=== PATIENT | female | born 1975 | race African-American/Black ===

== ENCOUNTER 2016-11-19 13:57 | Emergency (ER) | payer OTHER ==
[~2016-11-19] VITALS: Ht 162.6 cm; Wt 131.5 kg
[2016-11-19 15:48] VITALS: BP 156/108
--- NOTE | 2016-11-19 15:52 | PHYS DOC ---
Past Medical History Past Medical History: Diabetes-Type II, Hypertension Additional Information: nonsmoker Alcohol Use: Occasionally Drug Use: None Adult General Chief Complaint Chief Complaint: COUGH HPI HPI Patient is a 41 year old female who presents with nonproductive cough and mild shortness of breath for4 days. She reports subjective fevers at home with nasal congestion, sore throat, ear pain, and body aches. She denies vomiting, diarrhea , or abdominal pain. She did not receive a flu vaccination this season. She denies any known sick contacts. Her PCP is Dr. Lela Everett. Review of Systems Review of Systems Constitutional: Reports subjective fever. Eyes: Denies change in visual acuity, redness, or eye pain. [] HENT: Reports ear pain, nasal congestion, and sore throat. Respiratory: Reports nonproductive cough and mild shortness of breath. Cardiovascular: Denies chest pain, palpitations or edema. [] GI: Denies abdominal pain, nausea, vomiting, bloody stools or diarrhea. [] Musculoskeletal: Denies back pain or joint pain. Reports myalgias. Integument: Denies rash or skin lesions. [] Neurologic: Denies headache, focal weakness or sensory changes. [] All systems reviewed and negative unless otherwise stated in the HPI. Allergies Allergies Allergies Coded Allergies Type Severity Reaction Last Updated Verified No Known Drug Allergies 11/19/16 No Physical Exam Physical Exam Constitutional: Well developed, well nourished, no acute distress, non-toxic appearance. [] HENT: Normocephalic, atraumatic, bilateral external ears normal, oropharynx moist, no oral exudates, nose normal. Bilateral TMs without erythema or bulging. There is no posterior pharyngeal erythema or tonsillar edema. Bilateral nasal turbinates are swollen and erythematous with purulent drainage. Eyes: PERRLA, EOMI, conjunctiva normal, no discharge. [] Neck: Normal range of motion, no tenderness, supple, no stridor. [] Cardiovascular: Heart rate regular rhythm, no murmur [] Lungs & Thorax: No respiratory distress. Mild wheezing in the left lung base without rales or rhonchi. Skin: Warm, dry, no erythema, no rash. [] Neurologic: Alert and oriented X 3, normal motor function, normal sensory function, no focal deficits noted. [] Psychologic: Affect normal, judgement normal, mood normal. [] Current Patient Data Vital Signs Vital Signs Date Time Temp Pulse Resp B/P Pulse Ox O2 Delivery O2 Flow Rate FiO2 11/19/16 15:48 99.7 116 20 100 Room Air 99.7 Lab Values Laboratory Tests Test 11/19/16 15:43 Influenza Type A Antigen Positive (NEGATIVE) Influenza Type B Antigen Negative (NEGATIVE) EKG EKG [] Radiology/Procedures Radiology/Procedures REASON: cough, LLL wheezes PROCEDURE: CHEST PA & LATERAL Indication cough. Wheezing. Difficulty breathing. PA and lateral views of the chest were obtained and are compared to an examination 08/16/2012. The heart and pulmonary vessels appear normal. The lungs are clear. There has not been a significant change when compared to the previous exam. IMPRESSION: Continued normal study Course & Med Decision Making Course & Med Decision Making Pertinent Labs and Imaging studies reviewed. (See chart for details) [] Dragon Disclaimer Dragon Disclaimer This electronic medical record was generated, in whole or in part, using a voice recognition dictation system. Departure Departure Impression: Primary Impression: Influenza A Disposition: 01 HOME, SELF-CARE Condition: STABLE Referrals: LELA EVERETT MD (PCP) Patient Instructions: Influenza, Adult, [id number] Additional Instructions: Your flu test was positive for influenza A. Your chest xray was negative for pneumonia. Please use the prescribed inhaler as needed for cough or shortness of breath. Do not use more often than directed. Please use Tylenol and ibuprofen for fever and pain control. Use according to package instructions. Please drink lots of water to stay hydrated and get plenty of rest. Please practice good hand hygiene to prevent infecting others with the flu. Return to emergency department if you have any new or concerning symptoms. Scripts Benzonatate 200 Mg Capsule1 Cap PO TID #30 CAP Prov:FRANCES MURRAY 11/19/16 Albuterol Sulfate (Proair Hfa Inhaler)8.5 Gm Hfa.[id number].[id number] Puff INH Q4HRS PRN SHORTNESS OF BREATH #1 INHALER Prov:FRANCES MURRAY 11/19/16 FRANCES MURRAY Nov 19, 2016 15:52
--- NOTE | 2016-11-19 16:26 | RAD ---
Indication cough. Wheezing. Difficulty breathing. PA and lateral views of the chest were obtained and are compared to an examination 08/16/2012. The heart and pulmonary vessels appear normal. The lungs are clear. There has not been a significant change when compared to the previous exam. IMPRESSION: Continued normal study
[2016-11-19 16:27] LABS: OBC FLU VALID
[2016-11-19] MEDS ORDERED: PROAIR HFA8.5 GM INH (16:48)
[2016-11-19] MEDS ORDERED: BENZ200C39 PO (16:48)
== END 2016-11-19 17:05 | disposition home or self-care (01) ==
LOC: ER 13:57
DX: J09.X2 Influenza due to identified novel influenza A virus with other respiratory manifestations (principal); E11.9 Type 2 diabetes mellitus without complications; I10 Essential (primary) hypertension
CPT/HCPCS: 71020; 87804; 99285-25

== ENCOUNTER 2017-05-20 08:24 | Emergency (ER) | payer OTHER ==
[~2017-05-20 08:24] MED LIST: BENZ200C47 PO; PROAIR HFA8.5 GM INH
[2017-05-20 08:55] VITALS: BP 136/93
[2017-05-20] MEDS ORDERED: CEPH-263 PO (09:10)
--- NOTE | 2017-05-20 09:10 | PHYS DOC ---
Past Medical History Past Medical History: Diabetes-Type II, Hypertension Past Surgical History: No Surgical History Alcohol Use: Occasionally Drug Use: None Adult General Chief Complaint Chief Complaint: EYE PROBLEMS HPI HPI This is a pleasant 42-year-old female presenting to the emergency department today with swelling of the upper part of her right eyelid. It is been present for about 3 days. It is associated with mild redness without any drainage. She denies any changes in her vision. Review of systems was negative for chest pain shortness of breath vision changes numbness weakness tingling fevers or chills. All other review of systems is negative unless otherwise noted in history of present illness. ED course: 42-year-old female presenting to the emergency department today with swelling and redness of the top part of her right eyelid. Differential diagnosis included preseptal cellulitis, hordoleum, chalazion. She denies any vision changes. I recommended oral antibiotics to follow-up with the eye doctor in 1-2 days. Also I recommended warm compresses. They were to return if their symptoms worsened or if they were concerned for any reason. [id number] discharge instructions and return precautions were given. Patient's questions were answered to their satisfaction. Patient is comfortable plan. Review of Systems Review of Systems SEE ABOVE. Allergies Allergies Allergies Coded Allergies Type Severity Reaction Last Updated Verified No Known Drug Allergies 11/19/16 No Physical Exam Physical Exam SEE ABOVE Constitutional: Well developed, well nourished, no acute distress, non-toxic appearance. [] HENT: Normocephalic, atraumatic, bilateral external ears normal, oropharynx moist, no oral exudates, nose normal. [] Eyes: PERRLA, EOMI, conjunctiva normal, no discharge. The patient has swelling of the right upper eyelid with a probable hordoleum in the medial portion. Neck: Normal range of motion, no tenderness, supple, no stridor. [] Cardiovascular:Heart rate regular rhythm, no murmur Lungs & Thorax: Bilateral breath sounds clear to auscultation [] Abdomen: Bowel sounds normal, soft, no tenderness, no masses, no pulsatile masses. Skin: Warm, dry, no erythema, no rash. [] Back: No tenderness, no CVA tenderness. Extremities: No tenderness, no cyanosis, no clubbing, ROM intact, no edema. [] Neurologic: Alert and oriented X 3, normal motor function, normal sensory function, no focal deficits noted. [] Psychologic: Affect normal, judgement normal, mood normal. [] Current Patient Data Vital Signs Vital Signs Date Time Temp Pulse Resp B/P (MAP) Pulse Ox O2 Delivery O2 Flow Rate FiO2 05/20/17 08:55 98.7 89 18 97 Room Air 98.7 EKG EKG [] Radiology/Procedures Radiology/Procedures [] Course & Med Decision Making Course & Med Decision Making Pertinent Labs and Imaging studies reviewed. (See chart for details) [] Dragon Disclaimer Dragon Disclaimer This electronic medical record was generated, in whole or in part, using a voice recognition dictation system. Departure Departure Impression: Primary Impression: Hordeolum Disposition: HOME, SELF-CARE Condition: STABLE Referrals: PREETI MARINO MD (PCP) Patient Instructions: Cellulitis, [id number], Sty Additional Instructions: Thank you for allowing us to participate in your care today. Followup with the eye doctor in 1-2 days. Call your Primary Doctor tomorrow and inform them of your visit today. If you do not have a primary care provider you can ask for a list of our primary care providers. Return to the emergency department you have any new or concerning findings. This should be evaluated by the primary care physician and any necessary consulting services for continued management within a few days after discharge. Return to emergency room if you have any new or concerning symptoms including but not limited to fever, chills, nausea, vomiting, intractable pain, any new rashes, chest pain, shortness of air, uncontrolled bleeding, difficulty breathing, and/or vision loss. Scripts Cephalexin (KEFLEX) 250 Mg Capsule 1 CAP PO QID, #40 CAP Prov: MUMTAZ PAULSON MD 05/20/17 MUMTAZ PAULSON MD May 20, 2017 09:10
== END 2017-05-20 09:26 | disposition home or self-care (01) ==
LOC: ER 08:24
DX: H00.011 Hordeolum externum right upper eyelid (principal); I10 Essential (primary) hypertension; E11.9 Type 2 diabetes mellitus without complications
CPT/HCPCS: 99283

== ENCOUNTER → 2018-04-25 | Outpatient (CLI) | payer OTHER | END | disposition home or self-care (01) | LOC: KCIC 13:06 | DX: M25.50 Pain in unspecified joint (principal); E11.9 Type 2 diabetes mellitus without complications; I10 Essential (primary) hypertension | CPT/HCPCS: 73130; 73630 ==